=== PATIENT | male | born 1955 | race Caucasian/White ===

== ENCOUNTER 2017-08-06 12:30 | Emergency (ER) | payer OTHER ==
[~2017-08-06] VITALS: Ht 180.3 cm; Wt 87.3 kg
[~2017-08-06 12:30] MED LIST: AMOX TR-K CLV1 EAC4 PO; ASPIR 8181 M1 PO; CARVEDILOL3.125 MG PO; CLOPIDOGREL75 MG PO; Ecotrin PO; KEFLEX500 MG PO; LISINOPRIL2.5 MG PO; NO HOME MEDS; PLAVIX75 MG PO; PRAVASTATIN SOD40 MG PO; ST. JOSEPH ASPI81 MG PO
[2017-08-06 12:34] VITALS: BP 128/86
[2017-08-06 13:27] LABS: HEMATOCRIT 45.6 % (38.0-50.0); HEMOGLOBIN 15.8 G/DL (12.5-16.6); MCHC 34.6 G/DL (30.0-36.0); MCV 89.4 FL (86-99); PLATELET COUNT 262 K/uL (156-360); RBC DIS.WIDTH-CV 13.1 % (11.8-14.6); RBC DIS.WIDTH-SD 42.9 % (39-53); WHITE BLOOD COUNT 11.5 K/uL (4.1-10.2)
[2017-08-06 13:37] LABS: CHLORIDE 103 mEq/L (99-109); POTASSIUM 4.5 mEq/L (3.7-5.4); SODIUM 137 mEq/L (136-147)
[2017-08-06 13:39] LABS: GLUCOSE 85 mg/dL (70-99)
[2017-08-06 13:43] LABS: CREATININE 1.5 mg/dL (0.6-1.3); GFR ESTIMATE (CALCULATED) 50 mL/min/ (58.99-99999)
[2017-08-06 13:44] LABS: UREA NITROGEN (BUN) 16 mg/dL (9-23)
[2017-08-06] MEDS ORDERED: DOXYCYCLINE MO100 MG PO (14:21)
== END 2017-08-06 14:41 | disposition home or self-care (01) ==
LOC: EME 12:30
DX: J20.9 Acute bronchitis, unspecified (principal); E78.5 Hyperlipidemia, unspecified; I25.2 Old myocardial infarction; F17.200 Nicotine dependence, unspecified, uncomplicated; Z95.5 Presence of coronary angioplasty implant and graft
CPT/HCPCS: 71046; 80048; 85027; 99281; 99284